=== PATIENT | female | born 1970 | race Caucasian/White ===

== ENCOUNTER 2017-05-23 14:27 | Emergency (ER) | payer BC ==
[~2017-05-23] VITALS: Ht 162.6 cm; Wt 84.1 kg
[2017-05-23 15:20] LABS: HEMATOCRIT 41.2 % (36.0-46.0); MCH 30.7 PG (29.0-34.0); MCHC 34.7 G/DL (30.0-36.0); MCV 88.4 FL (83-99); MEAN PLAT.VOLUME 9.5 uM^3 (9.5-12.4); PLATELET COUNT 348 K/uL (156-360); RBC DIS.WIDTH-SD 38.6 % (39-53); RED BLOOD COUNT 4.66 M/uL (3.80-5.20); WHITE BLOOD COUNT 9.4 K/uL (4.1-10.2)
[2017-05-23 15:31] LABS: CHLORIDE 106 mEq/L (99-109); POTASSIUM 4.1 mEq/L (3.7-5.4); SODIUM 138 mEq/L (136-147)
[2017-05-23 15:33] LABS: GLUCOSE 124 mg/dL (70-99)
[2017-05-23 15:34] LABS: ANION GAP 11 MEQ/L (2-14)
[2017-05-23 15:36] LABS: GFR ESTIMATE (CALCULATED) > 59 mL/min/
[2017-05-23 15:37] LABS: UREA NITROGEN (BUN) 10 mg/dL (9-23)
[2017-05-23 17:32] VITALS: BP 128/84
== END 2017-05-23 17:39 | disposition home or self-care (01) ==
LOC: EME 14:27
DX: E86.0 Dehydration (principal); R55 Syncope and collapse; R11.0 Nausea; F17.200 Nicotine dependence, unspecified, uncomplicated
CPT/HCPCS: 71020; 80048; 85027; 93005; 99281; 99284; J7030